=== PATIENT | female | born 1965 | race Caucasian/White ===

== ENCOUNTER → 2019-09-03 | Outpatient (CLI) | payer OTHER ==
[~2019-09-03] MED LIST: LEVO175T2 PO; LEVO200T4 PO; MULTIVITAMIN PO
[2019-09-03 16:09] LABS: BASO % 0.6 % (0.0-1.0); EOS # 0.1 10^3/uL (0.0-0.5); EOS % 1.4 % (0.0-3.0); HEMATOCRIT 40.1 % (36.0-47.0); HEMOGLOBIN 12.8 g/dl (12.0-15.5); LYMPH # 1.3 10^3/uL (1.5-5.0); LYMPH % 17.9 % (24.0-44.0); MEAN CORPUSCULAR HEMOGLOBIN 28.6 pg (27.0-33.0); MEAN CORPUSCULAR HGB CONC 31.9 g/dl (32.0-36.5); MEAN CORPUSCULAR VOLUME 89.7 fl (80.0-96.0); MONO # 0.5 10^3/uL (0.0-0.8); MONO % 6.2 % (0.0-5.0); NEUTROPHILS # 5.4 10^3/uL (1.5-8.5); NEUTROPHILS % 73.6 % (36.0-66.0); PLATELET COUNT, AUTOMATED 276 10^3/uL (150-450); RED BLOOD COUNT 4.47 10^6/uL (4.00-5.40); WHITE BLOOD COUNT 7.3 10^3/uL (4.0-10.0)
[2019-09-03 16:31] LABS: ALBUMIN 3.8 GM/DL (3.2-5.2); ALT/SGPT 72 U/L (12-78); BILIRUBIN,TOTAL 0.4 MG/DL (0.2-1.0); BLOOD UREA NITROGEN 19 MG/DL (7-18); CALCIUM LEVEL 8.9 MG/DL (8.5-10.1); CARBON DIOXIDE LEVEL 29 MEQ/L (21-32); CHLORIDE LEVEL 104 MEQ/L (98-107); CHOLESTEROL LEVEL 222 MG/DL (<200); CHOLESTEROL RISK RATIO 3.964 (<5); CREATININE FOR GFR 0.78 MG/DL (0.55-1.30); GLOMERULAR FILTRATION RATE > 60.0 (>51); GLUCOSE, FASTING 86 MG/DL (70-100); HDL CHOLESTEROL 56 MG/DL (>40); LDL CHOLESTEROL 144 MG/DL (<100); NON-HDL-C 166 MG/DL; POTASSIUM SERUM 4.3 MEQ/L (3.5-5.1); SODIUM LEVEL 140 MEQ/L (136-145); THYROID STIMULATING HORMONE 0.558 uIU/ML (0.358-3.740); TOTAL PROTEIN 7.7 GM/DL (6.4-8.2); TRIGLYCERIDES LEVEL 110 MG/DL (<150)
== END ==
LOC: M PLALAB 11:50
PROVIDERS: ATTEND Physician Assistant
DX: Z13.220 Encounter for screening for lipoid disorders (principal); K90.0 Celiac disease; E03.9 Hypothyroidism, unspecified

== ENCOUNTER → 2020-02-03 | Outpatient (REF) | payer OTHER | LOC: M SFHCWAGY 08:14 | PROVIDERS: ATTEND Nurse Practitioner Family | DX: Z12.4 Encounter for screening for malignant neoplasm of cervix (principal) ==

== ENCOUNTER → 2020-06-02 | Outpatient (CLI) | payer OTHER ==
[2020-06-02 19:31] LABS: C REACTIVE PROTEIN QUANTITATIV 0.82 MG/DL (0.00-0.30); FREE T4 1.31 NG/DL (0.76-1.46); RHEUMATOID FACTOR QUANT < 10.0 IU/ML (<15.0); URIC ACID 6.3 MG/DL (2.6-6.0)
[2020-06-09 21:06] LABS: ANTINUCLEAR ANTIBODIES DIRECT Negative (Negative); CYCLIC CITRULLINATED PEPTIDE 7 units (0-19); HLA-B27 Negative (.); Lyme Disease IgG/IgM Antibodie <0.91 ISR (0.00-0.90); Lyme Disease IgM Ab Quantitati <0.80 index (0.00-0.79); TISSUE TRANSGLUTAMINASE IgA <2 U/mL (0-3); TISSUE TRANSGLUTAMINASE IgG 4 U/mL (0-5)
--- NOTE | 2020-06-10 10:01 | REPPI ---
CERVICAL SPINE SERIES HISTORY: Neck pain. TECHNIQUE: Seven views of the cervical spine are performed. FINDINGS: There is no compression fracture. In the neutral and flexed positions, there is no malalignment on the lateral views. However, with extension there is some minimal retrolisthesis of C4 on C5 and C5 on C6 due to posterior facet arthropathy. There is mild spurring of C4 through C6. There is slight disc space narrowing at C4-5. There is moderate narrowing at C5-6. There is mild posterior osteophytic ridging at C5-6. There is diffuse narrowing and sclerosis at the posterior facet joints. Uncovertebral spurring appears to cause at least a mild degree of mild bilateral foraminal narrowing at C5-6. There are several metallic clips projecting anterior to the mid to lower cervical spine region. IMPRESSION: Degenerative changes as above with no evidence of compression fracture. There is slight retrolisthesis in the extended position at the C4-5 and C5-6 levels. The most significant degenerative disc changes are at C5-6. MTDD
--- NOTE | 2020-06-10 10:02 | REPPI ---
PELVIS AND BILATERAL HIPS HISTORY: Bilateral hip pain. TECHNIQUE: AP view of the pelvis, as well as AP and frog leg views of bilateral hips performed. FINDINGS: No acute fracture or dislocation is seen. There is no intrinsic osseous pathology. Joint spaces appear essentially normal. IMPRESSION: Negative exam pelvis and bilateral hips. MTDD
--- NOTE | 2020-06-10 10:03 | REPPI ---
LUMBOSACRAL SPINE SERIES HISTORY: Back pain. TECHNIQUE: Five views of the lumbosacral spine performed. FINDINGS: There is no compression fracture or malalignment. There is normal lumbar lordosis. There is no spondylolysis or spondylolisthesis. There is mild diffuse spurring. There are small Schmorl's nodes at the superior endplates of T12, L1, L2, and L3, and also at the inferior endplate of L2. There is very mild disc space narrowing and subchondral sclerosis at all levels. There is sclerosis and spurring at the posterior facet joints of L5-S1. The posterior elements are intact. IMPRESSION: Mild diffuse degenerative changes. No compression fracture. MTDD
== END ==
LOC: M PLAIMG 15:54
PROVIDERS: ATTEND Family Medicine
DX: M54.2 Cervicalgia (principal); M25.552 Pain in left hip; M25.551 Pain in right hip; K90.0 Celiac disease; E89.0 Postprocedural hypothyroidism; M54.5 Low back pain

== ENCOUNTER → 2020-08-03 | Outpatient (CLI) | payer OTHER ==
--- NOTE | 2020-08-03 20:49 | REPPI ---
INDICATION: PAIN IN RT LOWER LEG, EDEMA, NEOPLASM OF UNCERTAIN BEHAVIOR COMPARISON: None. TECHNIQUE: AP, lateral views of the right tibia/fibula. FINDINGS: The osseous structures and joint spaces are intact and normal. There is no evidence for acute fracture or dislocation. Surrounding soft tissues are unremarkable. No subcutaneous emphysema or radiodense foreign body. IMPRESSION: Age-appropriate examination. No obvious abnormalities by radiographic evaluation. <Electronically signed by Kimani Conn > 08/03/20 [id number]
== END ==
LOC: M PLAIMG 12:00
PROVIDERS: ATTEND Family Medicine
DX: M79.661 Pain in right lower leg (principal); R60.0 Localized edema; D48.0 Neoplasm of uncertain behavior of bone and articular cartilage

== ENCOUNTER → 2021-01-12 | Outpatient (CLI) | payer OTHER ==
--- NOTE | 2021-01-12 10:31 | REPMRS ---
Patient History The patient states she has not had a clinical breast exam in over a year. Patient is postmenopausal and has history of other cancer at age 28. Family history of colorectal cancer at age 80 in paternal grandfather, breast cancer at age 37 in maternal aunt. Magaly vaccine 12/11/20 right arm. 15 lb intentional weight loss. Patient states no breast complaints today. Patient has signed MRS History Sheet. Digital Woman Screen Mammo: January 12, 2021 - Exam #: [id number] Bilateral CC and MLO view(s) were taken. Technologist: RT Marisela Prior study comparison: November 07, 2019, bilateral digital mammo screening bilat, performed at [facility]. October 29, 2018, bilateral digital mammo screening bilat, performed at [facility]. FINDINGS: There are scattered fibroglandular densities. Screening. Digital screening (2D) mammography was performed bilaterally in the CC and MLO projections. Additionally, breast tomosynthesis (3D mammography) was performed bilaterally in the CC and MLO projections. Todays exam was compared to the prior exams. By history, the patient has no complaints of a palpable breast abnormality or other significant breast complaints. The breasts are unchanged in size and shape. There are no lisa-soft tissue densities or spiculated masses. There is no internal architectural distortion. There are no suspicious lisa-calcific clusters. Skin thickening or nipple retraction is not present. IMPRESSION: BI-RADS Category 2- Benign Findings. There is no evidence of malignant alteration of the breasts. Followup examination recommended in one year. The Volpara volumetric breast density category is B, there are scattered areas of fibroglandular density. This mammogram was read with the assistance of [facility],an FDA approved computer aided detection system for mammography. The lifetime Tyrer-Cuzick score is 12.6 % Negative x-ray reports should not delay surgical consultation if a dominant or clinically suspicious mass is present. Not all breast cancers can be identified by mammography. Therefore, we recommend that you continue to perform regular breast self-examination and physical examination and then promptly contact your physician of any concerns or changes. Adenosis and dense breasts may obscure an underlying neoplasm. Assessment: BI-RADS/ACR category 2 mammogram. Benign Findings. Recommendation Routine screening mammogram of both breasts in 1 year. Electronically Signed By: Isra Rock DO 01/12/21 1031
== END ==
LOC: M WHC 09:28
PROVIDERS: ATTEND Family Medicine
DX: Z12.31 Encounter for screening mammogram for malignant neoplasm of breast (principal); Z78.0 Asymptomatic menopausal state; Z85.89 Personal history of malignant neoplasm of other organs and systems

== ENCOUNTER → 2021-01-12 | Outpatient (CLI) | payer OTHER ==
[2021-01-12 11:25] LABS: BASO # 0.1 10^3/uL (0.0-0.2); BASO % 1.1 % (0.0-1.0); EOS # 0.1 10^3/uL (0.0-0.5); EOS % 2.1 % (0.0-3.0); HEMATOCRIT 40.1 % (36.0-47.0); HEMOGLOBIN 13.3 g/dl (12.0-15.5); LYMPH # 1.3 10^3/uL (1.5-5.0); MEAN CORPUSCULAR HEMOGLOBIN 29.1 pg (27.0-33.0); MEAN CORPUSCULAR HGB CONC 33.2 g/dl (32.0-36.5); MEAN CORPUSCULAR VOLUME 87.7 fl (80.0-96.0); MONO # 0.5 10^3/uL (0.0-0.8); NEUTROPHILS # 3.7 10^3/uL (1.5-8.5); NEUTROPHILS % 64.4 % (36.0-66.0); PLATELET COUNT, AUTOMATED 269 10^3/uL (150-450); RED BLOOD COUNT 4.57 10^6/uL (4.00-5.40); WHITE BLOOD COUNT 5.7 10^3/uL (4.0-10.0)
[2021-01-12 11:59] LABS: ALBUMIN 3.9 GM/DL (3.2-5.2); ALT/SGPT 26 U/L (12-78); BILIRUBIN,TOTAL 0.5 MG/DL (0.2-1.0); BLOOD UREA NITROGEN 22 MG/DL (7-18); CALCIUM LEVEL 9.5 MG/DL (8.5-10.1); CARBON DIOXIDE LEVEL 30 MEQ/L (21-32); CHLORIDE LEVEL 106 MEQ/L (98-107); CHOLESTEROL LEVEL 213 MG/DL (<200); FREE T4 2.21 NG/DL (0.76-1.46); GLOMERULAR FILTRATION RATE > 60.0 (>51); GLUCOSE, FASTING 86 MG/DL (70-100); HDL CHOLESTEROL 75 MG/DL (>40); LDL CHOLESTEROL 130 MG/DL (<100); NON-HDL-C 138 MG/DL; POTASSIUM SERUM 4.4 MEQ/L (3.5-5.1); SODIUM LEVEL 140 MEQ/L (136-145); THYROID STIMULATING HORMONE < 0.005 uIU/ML (0.358-3.740); TOTAL 25(OH) VITAMIN D 41.7 NG/ML (30.0-100.0); TOTAL PROTEIN 7.4 GM/DL (6.4-8.2); TRIGLYCERIDES LEVEL 41 MG/DL (<150); VITAMIN B12 LEVEL 919 PG/ML (247-911)
== END ==
LOC: M PLALAB 10:06
PROVIDERS: ATTEND Family Medicine
DX: K90.0 Celiac disease (principal); E89.0 Postprocedural hypothyroidism; Z13.220 Encounter for screening for lipoid disorders; Z13.0 Encounter for screening for diseases of the blood and blood-forming organs and certain disorders involving the immune mechanism; Z13.29 Encounter for screening for other suspected endocrine disorder

== ENCOUNTER → 2021-06-24 | Outpatient (CLI) | payer OTHER ==
[2021-06-24 15:57] LABS: FREE T4 1.6 NG/DL (0.76-1.46); THYROID STIMULATING HORMONE 0.018 uIU/ML (0.358-3.740)
== END ==
LOC: M PLALAB 12:54
PROVIDERS: ATTEND Family Medicine
DX: E89.0 Postprocedural hypothyroidism (principal)

== ENCOUNTER → 2022-04-18 | Outpatient (CLI) | payer OTHER | LOC: M WHC 14:13 | PROVIDERS: ATTEND Family Medicine | DX: Z12.31 Encounter for screening mammogram for malignant neoplasm of breast (principal) ==

== ENCOUNTER → 2023-06-12 | Outpatient (CLI) | payer OTHER | LOC: M WHC 12:50 | PROVIDERS: ATTEND Family Medicine | DX: Z12.31 Encounter for screening mammogram for malignant neoplasm of breast (principal); Z13.820 Encounter for screening for osteoporosis ==

== ENCOUNTER → 2024-07-29 | Outpatient (CLI) | payer OTHER | LOC: M WHC 12:48 | PROVIDERS: ATTEND Family Medicine | DX: Z12.31 Encounter for screening mammogram for malignant neoplasm of breast (principal) ==